=== PATIENT | female | born 1980 | race Caucasian/White ===

== ENCOUNTER 2018-07-09 00:27 | Emergency (ER) | payer SELFPAY ==
[2018-07-09 00:39] VITALS: BP 134/85; PULSE 71; RESP 19; TEMP 98.2; O2SAT 98
[2018-07-09] MEDS ORDERED: Naproxen 500 MG TAB PO ONE ×2 (00:50→01:37)
--- NOTE | 2018-07-09 00:52 | ED PDOC ---
Lower Extremity Pain/Injury Time Seen by Provider: 07/09/18 00:45 Chief Complaint (Nursing): Lower Extremity Problem/Injury Chief Complaint (Provider): right heel pain History Per: Patient, Family History/Exam Limitations: no limitations Onset/Duration Of Symptoms: Days (2 months) Current Symptoms Are (Timing): Still Present Additional Complaint(s): 38 yo female presents for evaluation of ongoing right heel pain x 2 months. Patient states pain worse with weight-bearing. Patient states she works on her feet all day and notes pain to be worse after working. Denies fever, known trauma, swelling to feet, numbness/weakness lower extremities. No medication taken for relief thus far Past Medical History Reviewed: Historical Data, Nursing Documentation, Vital Signs Vital Signs: Last Vital Signs Temp 98.2 F 07/09/18 00:37 Pulse 71 07/09/18 00:37 Resp 19 07/09/18 00:37 BP 134/85 07/09/18 00:37 Pulse Ox 98 07/09/18 00:37 - Medical History PMH: No Chronic Diseases - Surgical History Surgical History: Appendectomy, Cholecystectomy - Family History Family History: States: No Known Family Hx - Living Arrangements Living Arrangements: With Family - Home Medications Home Medications: Ambulatory Orders Medication Instructions Recorded Cephalexin [Keflex] 500 mg PO TID #15 cap 04/17/14 Naproxen 375 mg PO Q8 PRN #21 tab 04/17/14 Naproxen [Naprosyn] 500 mg PO Q12 PRN #20 tablet 07/09/18 - Allergies Allergies/Adverse Reactions: Allergies Allergy/AdvReac Type Severity Reaction Status Date / Time No Known Allergies Allergy Verified 07/09/18 00:39 Review of Systems ROS Statement: Except As Marked, All Systems Reviewed And Found Negative Musculoskeletal: Positive for: Foot Pain (right) Physical Exam - Reviewed Nursing Documentation Reviewed: Yes Vital Signs Reviewed: Yes - Physical Exam Appears: Positive for: Well, Non-toxic, No Acute Distress Pulses-Dorsalis Pedis (L): 2+ Pulses-Dorsalis Pedis (R): 2+ Pulses-Post. Tibialis (L): 2+ Pulses-Post. Tibialis (R): 2+ Extremity: Positive for: Normal ROM, Tenderness (plantar, posterior and lateral aspects of right heel; no erythema, edema, deformity noted. FROM. Distal NV/motor intact), Capillary Refill (<2 sec b/l LE). Negative for: Pedal Edema, Calf Tenderness, Swelling - ECG O2 Sat by Pulse Oximetry: 98 - Progress ED Course And Treament: -naproxen PO -right foot xray Patient educated on findings, discharged with rx Naproxen Advised RICE Follow up podiatry. Instructed to wear more supportive shoes to work Return precautions given Disposition - Clinical Impression Clinical Impression: Pain in heel - Patient ED Disposition Is Patient to be Admitted: No Counseled Patient/Family Regarding: Studies Performed, Diagnosis, Need For Followup, Rx Given - Disposition Referrals: Podiatry Clinic [Outside] Disposition: Routine/Home Disposition Time: 01:32 Condition: IMPROVED Prescriptions: Naproxen [Naprosyn] 500 mg PO Q12 PRN #20 tablet PRN Reason: Pain, Moderate (4-7) Instructions: Joint Pain Forms: [facility] [facility] ([place]), [facility] ED School/Work Excuse
--- NOTE | 2018-07-09 08:05 | RAD ---
Date of service: 07/09/2018 PROCEDURE: Right Foot Radiographs. HISTORY: heel pain COMPARISON: None. FINDINGS: BONES: No fracture appreciated. No lytic lesion. Inferior calcaneal tiny spur spur. JOINTS: No dislocation. 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 OTHER FINDINGS: Moderate Etienne's tendon insetional enesthesophyte.. IMPRESSION: No fracture or lytic lesion. Arthrosis Calcaneal spur-tiny; moderate Etienne's tendon insetional enesthesophyte.
== END 2018-07-09 01:50 | disposition home or self-care (01) ==
LOC: H.ER 00:27
DX: M79.671 Pain in right foot (principal)